=== PATIENT | male | born 1995 | race Caucasian/White ===

== ENCOUNTER 2023-06-24 06:54 | Emergency (ER) | payer SELFPAY ==
--- OUTSIDE RECORDS SUMMARY | 2023-06-24 06:57 | XMS REPORT | Continuity of Care Document ---
Author Name Unknown Address [address] [facility] [address] [place] [address] [facility] Address [address] [facility] [address] [place] [address] Care Team Providers Care Hand Stitcher Name Role Phone FRANCINE HERNANDEZ Attending Clinician Unavailable JENNIFFER ADRIAN Attending Clinician Unavailable VIDYA SAMAYOA Attending Clinician UnavailRODRÍGUEZ carolina BA Attending Clinician Unavailable ANDRES DE LA PAZ Attending Clinician Unavailable IKER DOUGLAS Attending Clinician Unavailable MOISES COYLE Attending Clinician Unavailab FERNANDO Connell Attending Clinician Unavailable CRISTIAN APONTE Attending Clinician Unavailable CESARIO DORMAN Attending Clinician Unavaila ble Encounters Start Date/Time End Date/Time Encounter Type Admission Type Attending Clinicians Care Facility Care Department Encounter ID Source 2022-11-20 22:33:00 2022-11-21 00:55:00 Emergency ER FRANCINE HERNANDEZ [facility] [id number] [facility] 2022-10-28 22:41:00 2022-10-29 04:09:00 Emergency ER JENNIFFER ADRIAN [facility] [id number] [facility] 2022-01-16 18:50:00 2022-01-16 22:04:00 emergency [id number] 2022-01-16 18:50:00 2022-01-16 22:04:00 Emergency ER VIDYA SAMAYOA [facility] [id number] [facility] 2017-12-03 14:00:00 2017-12-03 15:15:00 Emergency ER RODRÍGUEZ VILLA [facility] [id number] [facility] 2017-11-02 22:01:00 2017-11-03 01:01:00 Emergency ER ANDRES DE LA PAZ [facility] [id number] [facility] 2017-09-03 07:50:00 2017-09-03 07:50:00 Outpatient IKER GUEVARA [facility] [id number] [facility] 2017-04-30 07:20:00 2017-04-30 08:30:00 Emergency ER MOISES COYLE [facility] [id number] [facility] 2017-03-09 14:38:00 2017-03-09 16:52:00 Emergency ER FERNANDO RANDLE [facility] [id number] [facility] 2016-03-01 19:51:00 2016-03-01 21:00:00 Emergency ER CRISTIAN APONTE [facility] [id number] [facility] 1998-04-15 20:05:00 1998-04-15 23:00:00 Emergency ER CESARIO DORMAN [facility] [id number] [facility]
[2023-06-24] MEDS ORDERED: NA CHLORIDE 0.9% 1,000 ML ONE (07:25)
[2023-06-24] MEDS ORDERED: KETOROLAC 30 MG/ML INJ ONE (07:25)
[2023-06-24] MEDS ORDERED: ACETAMINOPHEN 500 MG TAB ONE (07:25)
[2023-06-24] MEDS ORDERED: METOCLOPRAMIDE 10 MG/2mL INJ ONE (07:25)
--- NOTE | 2023-06-24 07:52 | RAD REPORT ---
EXAM DESCRIPTION: RAD - Chest Single View - 06/24/2023 7:47 am CLINICAL HISTORY: COUGH Chest pain. COMPARISON: No comparisons FINDINGS: Portable technique limits examination quality. The lungs are grossly clear. The heart is normal in size. No displaced fractures. IMPRESSION: No acute intrathoracic process suspected.
[2023-06-24 08:32] LABS: Absolute Eosinophils 0.2 K/uL (0-0.5); Absolute Lymphocytes (CBC) 1.4 K/uL (0.7-4.9); Absolute Monocytes 0.6 K/uL (0.1-1.3); Absolute Neutrophil 3.8 K/uL (1.8-8.0); Basophils % 0.6 % (0-1.3); Eosinophils % 3.5 % (0-4.4); Hemoglobin 14.8 g/dL (13.6-17.9); Lymphocytes % 23.1 % (15.3-44.8); MCH 31.2 pg (27.0-35.0); MCHC 34.5 g/dL (32.0-36.0); MCV 90.3 fL (80-100); MPV 9.4 fL (7.6-11.3); Monocytes % 9.3 % (3.3-12.3); Neutrophils % 63.5 % (41.7-73.7); Platelets 184 thou/uL (152-406); RBC Red Blood Cell Count 4.76 M/uL (4.33-5.43); Red Cell Distribution Width 12.5 % (12.1-15.2)
--- NOTE | 2023-06-24 08:52 | ER ---
Nurse's Notes [facility] Name: Fly Rahman Age: 27 yrs Sex: Male : 1995 Arrival Date: 06/24/2023 Time: 06:54 Bed 2 Private MD: Diagnosis: Viral infection, unspecified Presentation: 06/23 07:11 Chief complaint: Patient states: Cough, congestion, fever, body aches, fatigue, ll1 sleeping a lot since Thursday. Slight N/V/D. Coronavirus screen: Vaccine status: Patient reports being unvaccinated. Client denies travel out of the [place] in the last 14 days. congestion, cough unrelated to allergies, fatigue, fever, headache, muscle pain, nausea, vomiting. Client presents with at least one sign or symptom that may indicate coronavirus-19. Standard/surgical mask placed on the client. Ebola Screen: Patient denies travel to an Ebola-affected area in the 21 days before illness onset. Initial Sepsis Screen: Does the patient meet any 2 criteria? No. Patient's initial sepsis screen is negative. Does the patient have a suspected source of infection? No. Patient's initial sepsis screen is negative. Risk Assessment: Do you want to hurt yourself or someone else? Patient reports no desire to harm self or others. Onset of symptoms was June 21, 2023. 07:11 Method Of Arrival: Ambulatory ll1 07:11 Acuity: SABAS 3 ll1 Triage Assessment: 07:16 General: Appears in no apparent distress. Behavior is calm, cooperative, appropriate ll1 for age. General: Reports fever for feeling ill for fatigue for. Pain: Complains of pain in head Pain currently is 5 out of 10 on a pain scale. Quality of pain is described as aching. Neuro: Reports headache. Respiratory: Reports cough that is. GI: Reports nausea. Musculoskeletal: Reports body aches. Historical: - Allergies: 07:16 No Known Allergies; ll1 - Home Meds: 07:16 None [Active]; ll1 - PMHx: 07:16 None; ll1 - PSHx: 07:16 None; ll1 - Immunization history:: Adult Immunizations up to date. - Social history:: Smoking status: Patient reports use of chewing tobacco. Patient denies any tobacco usage or history of. Screenin:19 [facility] ED Fall Risk Assessment (Adult) History of falling in the last 3 months, ph including since admission No falls in past 3 months (0 pts) Confusion or Disorientation No (0 pts) Intoxicated or Sedated Yes (3 pts) Impaired Gait No (0 pts) Mobility Assist Device Used No (0 pt) Altered Elimination No (0 pt) Score/Fall Risk Level 0 - 2 = Low Risk Oriented to surroundings, Maintained a safe environment, Hourly rounding (assess needs \T\ fall precautionary measures) done. Abuse screen: Denies threats or abuse. Denies injuries from another. Nutritional screening: No deficits noted. Tuberculosis screening: No symptoms or risk factors identified. Assessment: 08:18 General: Appears in no apparent distress. comfortable, well groomed, Behavior is calm, ph cooperative, appropriate for age, Reports fever for feeling ill for > 3 days. Pain: Complains of pain in body aches. Neuro: Level of Consciousness is awake, alert, obeys commands, Oriented to person, place, time, situation, Reports headache. Cardiovascular: Capillary refill < 3 seconds in bilateral fingers Patient's skin is warm and dry. Respiratory: Airway is patent Respiratory effort is even, unlabored, Respiratory pattern is regular, symmetrical. GI: Reports diarrhea, nausea, vomiting, Patient currently denies abdominal pain. Derm: Skin is pink, warm \T\ dry. Musculoskeletal: Circulation, motion, and sensation intact. Range of motion: intact in all extremities. Vital Signs: 07:11 Resp 16; Temp 98(O); Pulse Ox 100% ; Weight 90.72 kg; Height 6 ft. 2 in. ; Pain 5/10; ll1 07:13 BP 117 / 93; Pulse 80; ph 08:20 BP 117 / 75; Pulse 72; Resp 18; Pulse Ox 98% on R/A; ph 07:11 Body Mass Index 25.68 (90.72 kg, 187.96 cm) ll1 07:11 Pain Scale: Adult ll1 ED Course: 06:56 Patient arrived in ED. [id number] 07:09 Simone Dickerson MD is Attending Physician. ec2 07:11 Arm band placed on Patient placed in an exam room, on a stretcher. ll1 07:13 Triage completed. ll1 07:13 Flaquita Blood RN is Primary Nurse. ph 07:48 CXR XRAY In Process Unspecified. EDMS 07:50 Initial lab(s) drawn, by me, sent to lab. Inserted saline lock: 22 gauge in right ph antecubital area, using aseptic technique. Blood collected. 08:17 SARS RAPID Sent. ph 08:17 Influenza Screen (a \T\ B) Sent. ph 08:17 BMP Sent. ph 08:18 CBC with Diff Sent. ph 08:19 Patient has correct armband on for positive identification. Bed in low position. Call ph light in reach. Side rails up X 1. Provided Education on: Estimated time for test results and use of call light. Pulse ox on. NIBP on. Door closed. Noise minimized. Warm blanket given. PO fluids given. Administered Medications: 07:45 Drug: Acetaminophen PO 1000 mg PO once Route: PO; ph 07:50 Drug: NS 0.9% IV 1000 ml IV at 1 bolus Per protocol; 1000 mL bolus Route: IV; Rate: 1 ph bolus; Site: right antecubital; 07:50 Drug: Ketorolac IVP 15 mg IVP once Route: IVP; Site: right antecubital; ph 07:50 Drug: metoCLOPramide IVP 10 mg IVP once; over 1 to 2 minutes Route: IVP; Site: right ph antecubital; Medication: 08:19 VIS not applicable for this client. ph Outcome: 08:52 Discharge ordered by . ec2 09:16 Patient left the ED. ph Signatures: Dispatcher [employer] [facility] Flaquita Blood RN RN ph Soumya Son RN RN 1 Barbie Hernandez Edwin, MD MD ec2 Corrections: (The following items were deleted from the chart) 07:17 07:11 Acuity: SABAS 4 ll1 ll1 08:17 08:15 Acetaminophen PO 1000 mg PO ph ph 08:19 07:11 Resp 16bpm; Temp 98F Oral; 90.72 kg; Height 6 ft. 2 in.; BMI: 25.6; Pain 5/10, ll1 Adult; ll1
--- NOTE | 2023-06-24 08:52 | EDPHYS ---
Physician Documentation [facility] Name: Fly Rahman Age: 27 yrs Sex: Male : 1995 Arrival Date: 06/24/2023 Time: 06:54 Bed 2 Private MD: ED Physician Simone Dickerson HPI: 06/23 07:13 This 27 yrs old Male presents to ER via Unassigned with complaints of Fever. ec2 07:13 Patient arrives today for upper respiratory symptoms. Patient reports 4 days of ec2 symptoms. Patient does have a cough or congestion, no difficulty breathing, no issues with nausea or vomiting or diarrhea. Patient reports no significant medical problems, no daily medications.. Historical: - Allergies: 07:16 No Known Allergies; ll1 - Home Meds: 07:16 None [Active]; ll1 - PMHx: 07:16 None; ll1 - PSHx: 07:16 None; ll1 - Immunization history:: Adult Immunizations up to date. - Social history:: Smoking status: Patient reports use of chewing tobacco. Patient denies any tobacco usage or history of. ROS: 07:13 Constitutional: as per hpi ec2 Exam: 07:13 Constitutional: GEN: NAD Head: atraumatic Eyes: EOMI Ears: External ears are ec2 normal. CV: regular rate LUNGS: no respiratory distress ABD: non-distended SKIN: no evidence of rashes MSK: no evidence of trauma NEURO: moves all extremities equally Vital Signs: 07:11 Resp 16; Temp 98(O); Pulse Ox 100% ; Weight 90.72 kg; Height 6 ft. 2 in. ; Pain 5/10; ll1 07:13 BP 117 / 93; Pulse 80; ph 08:20 BP 117 / 75; Pulse 72; Resp 18; Pulse Ox 98% on R/A; ph 07:11 Body Mass Index 25.68 (90.72 kg, 187.96 cm) ll1 07:11 Pain Scale: Adult ll1 MDM: 07:09 Patient medically screened. ec2 07:13 Data reviewed: vital signs. ED course: Patient arrives today for evaluation of upper ec2 respiratory symptoms. Examination remarkable for well-appearing nontoxic dividual is otherwise in no acute distress with reassuring examination. Will obtain lab work, viral swabs, chest x-ray. Will treat the patient symptoms with Toradol, crystalloid as well as antiemetic. Suspect viral infection, patient also multiple sick contacts with similar type symptoms. 08:52 ED course: Negative viral swabs per lab. Will discharge home, suspect viral infection. ec2 Return precautions given. 06/23 07:13 Order name: CBC with Diff; Complete Time: 08:41 ec2 06/23 07:13 Order name: BMP; Complete Time: 08:29 ec2 06/23 07:13 Order name: Influenza Screen (a \T\ B); Complete Time: 08:54 ec2 06/23 07:13 Order name: SARS RAPID; Complete Time: 08:54 ec2 06/23 07:13 Order name: CXR XRAY; Complete Time: 08:20 ec2 Administered Medications: 07:45 Drug: Acetaminophen PO 1000 mg PO once Route: PO; ph 07:50 Drug: NS 0.9% IV 1000 ml IV at 1 bolus Per protocol; 1000 mL bolus Route: IV; Rate: 1 ph bolus; Site: right antecubital; 07:50 Drug: Ketorolac IVP 15 mg IVP once Route: IVP; Site: right antecubital; ph 07:50 Drug: metoCLOPramide IVP 10 mg IVP once; over 1 to 2 minutes Route: IVP; Site: right ph antecubital; Disposition Summary: 06/24/23 08:52 Discharge Ordered Notes: Location: Home ec2 Condition: Stable ec2 Diagnosis - Viral infection, unspecified ec2 Followup: ec2 - With: Private Physician - When: - Reason: Re-evaluation by your physician Discharge Instructions: - Discharge Summary Sheet ec2 - Viral Illness, Adult ec2 Forms: - Work release form ll1 - Medication Reconciliation Form ec2 - Thank You Letter ec2 - Antibiotic Education ec2 - Prescription Opioid Use ec2 - Patient Portal Instructions ec2 - Leadership Thank You Letter ec2 Prescriptions: - Compazine 10 mg Oral Tablet - take 1 tablet ORAL route every 8 hours As needed; 20 tablet; Refills: 0, ec2 Product Selection Permitted - Tessalon Perles 100 mg Oral Capsule - take 1 capsule ORAL route every 8 hours As needed; 15 capsule; Refills: 0, ec2 Product Selection Permitted Signatures: Dispatcher [employer] Flaquita Coyne RN RN Soumya Goldsmith RN RN ll Simone Dickerson MD MD ec2 Corrections: (The following items were deleted from the chart) 08:52 07:13 Patient arrives today for upper respiratory symptoms. Patient reports 4 days of ec2 symptoms. Patient does not have a cough or congestion, no difficulty breathing, no issues with nausea or vomiting or diarrhea. Patient reports no significant medical problems, no daily medications.. ec2
[2023-06-24 08:53] LABS: SARS-CoV-2 Antigen CONTROL BLUE LINE VIS/BG OK; SARS-CoV-2 Antigen Rapid Res Negative (Negative)
[2023-06-24 11:25] VITALS: BP 117/75; TEMP 98; O2SAT 98
== END 2023-06-24 09:16 | disposition home or self-care (01) ==
LOC: ER 06:54
DX: B34.9 Viral infection, unspecified (principal); F17.220 Nicotine dependence, chewing tobacco, uncomplicated; Z11.52 Encounter for screening for COVID-19
CPT/HCPCS: 36415; 71045; 80048; 85025; 87804; 87811; J2765; J7030